=== PATIENT | male | born 1970 | race Caucasian/White ===

== ENCOUNTER 2016-11-02 09:58 | Emergency (ER) | payer OTHER ==
[~2016-11-02] VITALS: Ht 182.8 cm; Wt 111.1 kg
[~2016-11-02 09:58] MED LIST: ATIVAN1 MG PO; DITROPAN5 MG PO; HYDROXYZINE HCL25 MG PO; LIDEX 0.05% CRE15 GM T; LISINOPRIL5 MG PO; MOTRIN800 MG PO; PERCOCET 325 MG1 TA2 PO; PERCOCET 325 MG1 TA5 PO; PYRIDIATE200 MG PO; PYRIDIUM200 MG PO; SILDENAFIL20 M1 PO; VICO75300 PO; VICODIN 5/500 505 MG PO; VICODIN ES 7501 TAB PO; XANAX1 MG PO; ZESTRIL5 MG PO; ZOLOFT25 MG PO
[2016-11-02] MEDS ORDERED: NORVASC10 MG PO (10:06)
[2016-11-02] MEDS ORDERED: SUBOXONE 8 MG-1 EACH SL (10:07)
[2016-11-02] MEDS ORDERED: CRESTOR20 M1 PO (10:07)
[2016-11-02] MEDS ORDERED: Tobrex Ophth S2.5 ML OPH (10:25)
== END 2016-11-02 11:19 | disposition home or self-care (01) ==
LOC: ED 09:58
DX: S05.01XA Injury of conjunctiva and corneal abrasion without foreign body, right eye, initial encounter (principal); I10 Essential (primary) hypertension; Z79.899 Other long term (current) drug therapy; X58.XXXA Exposure to other specified factors, initial encounter; Y93.89 Activity, other specified; Y92.89 Other specified places as the place of occurrence of the external cause; Y99.8 Other external cause status

== ENCOUNTER 2024-10-16 09:19 | Emergency (ER) | payer BC ==
[~2024-10-16] VITALS: Ht 182.8 cm; Wt 113.4 kg
[~2024-10-16 09:19] MED LIST changes: +CRESTOR20 M1 PO; +NORVASC10 MG PO; +SUBOXONE 8 MG-1 EACH SL; +Tobrex Ophth S2.5 ML OPH
[2024-10-16] MEDS ORDERED: Dexamethasone Sodium Phospha 20 MG/5 ML VIAL IM ONE (09:45)
[2024-10-16] MEDS ORDERED: PERCOCET 5-3251 EACH PO (10:40)
[2024-10-16] MEDS ORDERED: PREDNISONE20 M1 PO (10:40)
== END 2024-10-16 11:00 | disposition home or self-care (01) ==
LOC: ED 09:19
DX: G56.01 Carpal tunnel syndrome, right upper limb (principal); M19.041 Primary osteoarthritis, right hand; I10 Essential (primary) hypertension; F32.A Depression, unspecified; F41.9 Anxiety disorder, unspecified; F17.200 Nicotine dependence, unspecified, uncomplicated; Z79.899 Other long term (current) drug therapy; Z98.890 Other specified postprocedural states

== ENCOUNTER → 2024-12-18 | Day surgery (SDC) | payer BC ==
[2024-12-17 16:55] LABS: BUN 12 mg/dl (9-23)
[~2024-12-18] VITALS: Ht 182.8 cm; Wt 120.2 kg
[~2024-12-18] MED LIST changes: +ACETAMINOPHEN 100 ML IV ONE; +Lactated Ringer's Solution 1,000 ML IV ONE; +Lidocaine Hydrochloride 30 ML VIAL ONE; +Lidocaine Hydrochloride 5 ML VIAL IV ONE; +PERCOCET 5-3251 EACH PO; +PREDNISONE20 M1 PO; +PROPOFOL 200 MG/20 ML VIAL IV ONE; +SODIUM CHLORIDE 0.9% 100 ML IV ONE; +SODIUM CHLORIDE 0.9% 50 ML IV ONE; +ceFAZolin sodium/sodium chlor 0 ML IV ONE
[2024-12-18 08:00] VITALS: BP 175/115
[2024-12-18 08:41] VITALS: BP 121/98
[2024-12-18 08:56] VITALS: BP 142/82
[2024-12-18 09:11] VITALS: BP 163/101
== END | disposition home or self-care (01) ==
LOC: SDC 12-16 09:30
PROVIDERS: ATTEND Orthopaedic Surgery
DX: G56.01 Carpal tunnel syndrome, right upper limb (principal); I10 Essential (primary) hypertension; F41.9 Anxiety disorder, unspecified; F43.10 Post-traumatic stress disorder, unspecified; U07.0 Vaping-related disorder; Z98.890 Other specified postprocedural states; Z79.899 Other long term (current) drug therapy